=== PATIENT | female | born 1990 | race Hispanic/Latino ===

== ENCOUNTER 2017-06-27 22:47 | Emergency (ER) | payer BC, OTHER | END 2017-06-28 00:10 | disposition home or self-care (01) | LOC: EDH 22:47 | DX: K05.10 Chronic gingivitis, plaque induced (principal); Z98.51 Tubal ligation status; Z90.49 Acquired absence of other specified parts of digestive tract; Z88.0 Allergy status to penicillin | CPT/HCPCS: 99281 ==